=== PATIENT | female | born 1985 | race Caucasian/White ===

== ENCOUNTER 2020-10-25 12:43 | Emergency (ER) | payer MEDICAID ==
[~2020-10-25] VITALS: Ht 165.1 cm; Wt 111.0 kg
--- NOTE | 2020-10-25 13:24 | PHYS DOC ---
Past History Past Medical History: Asthma, Migraines, Other Additional Past Medical Histor: PCOS (JAN BURNS APRN) Past Surgical History: , Other Additional Past Surgical Histo: wisdom teeth (JAN BURNS APRN) Alcohol Use: None (JAN BURNS APRN) General Adult EDM: Chief Complaint: DIZZY/LIGHT HEADED HPI: HPI: Patient is a 35-year-old female who presents with migraine. Patient states that she is a history of migraines. Patient is reporting light sensitivity and nausea. Patient reports that she just moved here and has not established a relationship with a PCP yet. Patient has her first appointment with Dr. Tran in November. Patient denies vomiting. Denies visual changes or weakness. Patient reports that she gets migraines once a week. Patient also has a history of asthma, PCOS. (JAN BURNS APRN) Review of Systems: Review of Systems: Constitutional: Denies fever or chills Eyes: Denies change in visual acuity HENT: Denies nasal congestion or sore throat Respiratory: Denies cough or shortness of breath Cardiovascular: Denies chest pain or edema GI: Denies abdominal pain. Reports nausea. : Denies dysuria Musculoskeletal: Denies back pain or joint pain Integument: Denies rash Neurologic: Reports headache, denies focal weakness or sensory changes Endocrine: Denies polyuria or polydipsia Lymphatic: Denies swollen glands Psychiatric: Denies depression or anxiety (JAN BURNS APRN) Current Medications: Current Meds: Current Medications Medications (Trade) Dose Ordered Sig/Michaela Start Time Stop Time Status Last Admin Dose Admin Diphenhydramine HCl (Benadryl) 25 mg 1X ONCE 10/25/20 13:30 10/25/20 13:31 UNV Ketorolac Tromethamine (Toradol 15mg Vial) 15 mg 1X ONCE 10/25/20 13:30 10/25/20 13:31 UNV Prochlorperazine Edisylate (Compazine) 10 mg 1X ONCE 10/25/20 13:30 10/25/20 13:31 UNV (JAN BURNS APRN) Allergies: Allergies: Allergies Coded Allergies Type Severity Reaction Last Updated Verified No Known Drug Allergies 10/25/20 No (JAN BURNS APRN) Physical Exam: PE: Constitutional: Well developed, well nourished, no acute distress, non-toxic appearance. [] HENT: Normocephalic, atraumatic, bilateral external ears normal, oropharynx moist, no oral exudates, nose normal. [] Eyes: PERRLA, EOMI, conjunctiva normal, no discharge. [] Neck: Normal range of motion, no tenderness, supple, no stridor. [] Cardiovascular:Heart rate regular rhythm, no murmur [] Lungs & Thorax: Bilateral breath sounds clear to auscultation [] Abdomen: Bowel sounds normal, soft, no tenderness, no masses, no pulsatile masses. [] Skin: Warm, dry, no erythema, no rash. [] Back: No tenderness, no CVA tenderness. [] Extremities: No tenderness, no cyanosis, no clubbing, ROM intact, no edema. [] Neurologic: Alert and oriented X 3, normal motor function, normal sensory function, no focal deficits noted. [] Psychologic: Affect normal, judgement normal, mood normal. [] (JAN BURNS APRN) Current Patient Data: Vital Signs: Vital Signs Date Time Temp Pulse Resp B/P (MAP) Pulse Ox O2 Delivery O2 Flow Rate FiO2 10/25/20 13:02 98.5 92 16 150/94 (112) 98 Room Air (JAN BURNS APRN) EKG: EKG: [] (JAN BURNS APRN) Radiology/Procedures: Radiology/Procedures: [] (JAN BURNS APRN) Heart Score: C/O Chest Pain: No Risk Factors: Risk Factors: DM, Current or recent (<one month) smoker, HTN, HLP, family history of CAD, obesity. Risk Scores: Score 0 - 3: 2.5% MACE over next 6 weeks - Discharge Home Score 4 - 6: 20.3% MACE over next 6 weeks - Admit for Clinical Observation Score 7 - 10: 72.7% MACE over next 6 weeks - Early Invasive Strategies (JAN BURNS APRN) Course & Med Decision Making: Course & Med Decision Making Pertinent Labs and Imaging studies reviewed. (See chart for details) [] Patient presents to the emergency room for a migraine headache. Patient sta maxine that she has had migraine for about a week off and on. She reports that she has a history of migraines and gets them weekly. Patient denies thunderclap. Patient denies worst headache of her life. Negative Babinski. Patient does not take medication for chronic migraines. Patient has an appointment in November with Dr. Tran to establish PCP. Patient given Benadryl, Compazine, Toradol. Patient is reporting symptoms have been improved since medication. Sending patient home with Zofran to help with nausea. Patient is hemodynamically stable. Patient is able to ambulate on her own out of the emergency room and accompanied by her . Patient is appreciative and okay with discharge plan. (JAN BURNS APRN) Dragon Disclaimer: Dragon Disclaimer: This electronic medical record was generated, in whole or in part, using a voice recognition dictation system. (JAN BURNS APRN) Attending Co-Sign The patient was seen and interviewed as well as examined at the bedside. The chart was reviewed. The case was discussed. Agree with the plan of care. (MIRZA GUILLEN DO) Departure Departure: Impression: Primary Impression: Migraine Qualified Codes: G43.009 - Migraine without aura, not intractable, without status migrainosus Disposition: 01 HOME / SELF CARE / HOMELESS Condition: STABLE Referrals: TITO TRAN MD (PCP) Patient Instructions: Migraine Headache, [id number] Additional Instructions: You were seen in the emergency room for a migraine headache. You were given Tor adol, Benadryl, Compazine in the emergency room to treat symptoms. I am sending you home with a prescription for Zofran to help with nausea. Please keep your appointment in November with Dr. Tran to establish a PCP. Please return to the emergency room if you have worsening symptoms or concerns. EMERGENCY DEPARTMENT GENERAL DISCHARGE INSTRUCTIONS Thank you for coming to [facility] (ED) today and trusting us with you care. We trust that you had a positivie experience in our Emergency Department. If you wish to speak to the department management, you may call the director at [phone]. YOUR FOLLOW UP INSTRUCTIONS ARE FOLLOWS: 1. Do you have a private Doctor? If you do not have a private doctor, please ask for a resource list of physicians or clinics that may be able to assist you with follow up care. 2. The Emergency Physician has interpreted your x-rays. The X-Ray specialist will also review them. If there is a change in the findings, you will be notified in 48 hours when at all possible. 3. A lab test or culture has been done, your results will be reviewed and you will be notified if you need a change in treatment. ADDITIONAL INSTRUCTIONS AND INFORMATION: 1. Your care today has been supervised by a physician who is specially trained in emergency care. Many problems require more than one evaluation for a complete diagnosis and treatment. We recommend that you schedule your follow up appointment as recommended to ensure complete treatment of you illness or injury. If you are unable to obtain follow up care and continue to have a problem, or if your condition worsens, we recommend that you return to the ED. 2. We are not able to safely determine your condition over the phone nor are we able to give sound medical advice over the phone. For these safety reasons, if you call for medical advice we will ask you to come to the ED for further evaluation. 3. If you have any questions regarding these discharge instructions please call the ED at [phone]. SAFETY INFORMATION: In the interest of safety, wellness, and injury prevention; we encourage you to wear your sealbelt, if you smoke; quite smoking, and we encourage family to use a protective helmet for bicycling and other sporting events that present an increased risk for head injury. IF YOUR SYMPTOMS WORSEN OR NEW SYMPTOMS DEVELOP, OR YOU HAVE CONCERNS ABOUT YOUR CONDITION; OR IF YOUR CONDITION WORSENS WHILE YOU ARE WAITING FOR YOUR FOLLOW UP APPOINTMENT; EITHER CONTACT YOUR PRIMARY CARE DOCTOR, THE PHYSICIAN WHOSE NAME AND NUMBER YOU WERE GIVEN, OR RETURN TO THE ED IMMEDIATELY. Scripts Ondansetron Hcl (ZOFRAN) 4 Mg Tablet 4 MG PO TID PRN PRN for NAUSEA, #9 TAB Prov: JAN BURNS APRN 10/25/20 JAN BURNS APRN October 25, 2020 13:24 MIRZA GUILLEN DO October 28, 2020 08:24
[2020-10-25] MEDS ORDERED: KETOROLAC 15 MG/ML VIAL. IM ONE (13:30)
[2020-10-25] MEDS ORDERED: PROCHLORPERAZINE 10 MG/2 ML VIAL. IM ONE (13:30)
[2020-10-25] MEDS ORDERED: diphenhydrAMINE 50 MG/ML VIAL IM ONE (13:30)
[2020-10-25] MEDS ORDERED: KETOROLAC 15 MG/ML VIAL. ONE (13:32)
[2020-10-25] MEDS ORDERED: PROCHLORPERAZINE 10 MG/2 ML VIAL. IV ONE (13:45)
[2020-10-25] MEDS ORDERED: KETOROLAC 15 MG/ML VIAL. IVP ONE (13:45)
[2020-10-25] MEDS ORDERED: diphenhydrAMINE 50 MG/ML VIAL IVP ONE (13:45)
[2020-10-25] MEDS ORDERED: ONDA4TAB7 PO (14:32)
[2020-10-25 14:45] VITALS: BP 147/94
== END 2020-10-25 14:40 | disposition home or self-care (01) ==
LOC: ER 12:43
DX: G43.009 Migraine without aura, not intractable, without status migrainosus (principal); J45.909 Unspecified asthma, uncomplicated
CPT/HCPCS: 96374; 96375; 99285; J0780; J1200; J1885

== ENCOUNTER 2021-06-01 09:53 | Emergency (ER) | payer MEDICAID ==
[~2021-06-01] VITALS: Ht 165.1 cm; Wt 150.2 kg
[~2021-06-01 09:53] MED LIST: ONDA4TAB7 PO
[2021-06-01] MEDS ORDERED: IV NORMAL SALINE 1,000ML 1,000 ML IV ONE (10:45)
[2021-06-01] MEDS ORDERED: ONDANSETRON PF 4 MG/2 ML VIAL. IVP ONE (10:45)
[2021-06-01] MEDS ORDERED: IOHEXOL 300 MG/ML 75 ML VIAL. IV ONE (10:45)
--- NOTE | 2021-06-01 10:51 | PHYS DOC ---
Past History Past Medical History: Asthma, Migraines, Other Additional Past Medical Histor: PCOS (MARTIN WOODARD [employer]ARD STOCKER) Past Surgical History: , Other Additional Past Surgical Histo: wisdom teeth (MARTIN WOODARD APRN) Alcohol Use: None (MARTIN WOODARD APRN) Adult General Chief Complaint Chief Complaint: FLU SYMPTOM HPI HPI Patient is a 36-year-old female patient with history of asthma, migraine headaches, PCOS, who presents the ED today complaining of nausea, diarrhea, abdominal pain and chills, symptoms began this morning. Patient denies any melena. Rates the abdominal pain as mild and intermittent, mostly on the meddle and right lower quadrant. Denies anything specifically exacerbating or relieving her symptoms. Describes the pain as cramping. (MARTIN WOODARD APRN) Review of Systems Review of Systems Constitutional: Denies fever or chills [] Eyes: Denies change in visual acuity, redness, or eye pain [] HENT: Denies nasal congestion or sore throat [] Respiratory: Denies cough or shortness of breath [] Cardiovascular: No additional information not addressed in HPI [] GI: Reports abdominal pain, nausea, diarrhea : Denies dysuria or hematuria [] Musculoskeletal: Denies back pain or joint pain [] Integument: Denies rash or skin lesions [] Neurologic: Denies headache, focal weakness or sensory changes [] All other systems were reviewed and found to be within normal limits, except as documented in this note. (MARTIN WOODARD [employer]) Current Medications Current Medications Current Medications Medications (Trade) Dose Ordered Sig/Michaela Start Time Stop Time Status Last Admin Dose Admin Iohexol (Omnipaque 300 Mg/ml) 75 ml 1X ONCE 06/01/21 10:45 06/01/21 10:46 DC Ondansetron HCl (Zofran) 4 mg 1X ONCE 06/01/21 10:45 06/01/21 10:46 DC Sodium Chloride 1,000 ml @ 1,000 mls/hr 1X ONCE 06/01/21 10:45 06/01/21 11:44 (MARTIN WOODARD [employer]) Allergies Allergies Allergies Coded Allergies Type Severity Reaction Last Updated Verified No Known Drug Allergies 10/25/20 No (MARTIN WOODARD APRN) Physical Exam Physical Exam Constitutional: Well developed, well nourished, no acute distress, non-toxic appearance. [] HENT: Normocephalic, atraumatic, bilateral external ears normal, oropharynx moist, no oral exudates, nose normal. [] Eyes: PERRLA, EOMI, conjunctiva normal, no discharge. [] Neck: Normal range of motion, no tenderness, supple, no stridor. [] Cardiovascular:Heart rate regular rhythm, no murmur [] Lungs & Thorax: Bilateral breath sounds clear to auscultation [] Abdomen: Bowel sounds normal, soft, point tenderness to the mid abdomen and r ight lower quadrant, negative psoas sign, negative obturator sign, negative Rovsing sign, negative Powers sign, no masses, no pulsatile masses. [] Skin: Warm, dry, no erythema, no rash. [] Back: No tenderness, no CVA tenderness. [] Extremities: No tenderness, no cyanosis, no clubbing, ROM intact, no edema. [] Neurologic: Alert and oriented X 3, normal motor function, normal sensory function, no focal deficits noted. [] Psychologic: Affect normal, judgement normal, mood normal. [] (MARTIN WOODARD [facility]) Current Patient Data Vital Signs Vital Signs Date Time Temp Pulse Resp B/P (MAP) Pulse Ox O2 Delivery O2 Flow Rate FiO2 06/01/21 10:04 98.5 103 16 120/77 (91) 98 Room Air (MARTIN WOODARD [facility]) EKG E[facility] [] [facility] Radiology/Procedures Radiology/Procedures []PROCEDURE: CT ABD PELV W/ IV CONTRST ONLY EXAM: CT Abdomen and Pelvis with IV contrast CLINICAL HISTORY: Reason: n/v/d abd pain, 75mls omni 300 / Spl. Instructions: / History: . COMPARISON: none TECHNIQUE: Helical CT of the abdomen and pelvis was performed following the administration of intravenous contrast. Axial, coronal and sagittal reformatted images were generated. PQRS compliance statement - One or more of the following individualized dose reduction techniques were utilized for this study: 1. Automated exposure control 2. Adjustment of the mA and/or kV according to patient size 3. Use of iterative reconstruction technique FINDINGS: Lower Chest: Visualized lung bases are clear. Abdomen and Pelvis: Liver is normal in size and attenuation. Normal gallbladder is present. No biliary ductal dilation. The adrenal glands and pancreas are unremarkable. Normal renal nephrograms. There is a 4 mm nonobstructing stone in the left inferior pole. No perinephric inflammation or hydronephrosis. Stomach is unremarkable. No evidence of bowel obstruction or pericolonic inflammation. There is mild wall thickening of the descending, sigmoid colon and rectum which may be from underdistention versus mild colitis. The appendix is normal. No free intra-abdominal air or free fluid. No pathologic enlarged abdominal or pelvic lymph nodes. Vasculature is normal in course and caliber. Decompressed bladder. Normal appearing uterus is present. Ovaries are normal in appearance. No significant free pelvic fluid. Anterior abdominal wall is unremarkable. Bones: No acute or suspicious osseous abnormalities. IMPRESSION: 1. No definite acute process in the abdomen or pelvis to correlate with patient's symptoms. 2. Mild circumference wall thickening of the descending, sigmoid colon and rectum may be due to underdistention or mild colitis. Electronically signed by: Vidal King DO (06/01/2021 11:39 AM) [facility] DICTATED AND SIGNED BY: VIDAL KING DO DATE: 06/01/21 1123 CC: MARTIN WOODARD APRN; TITO CARRASCO MD ~MTH0 0 (MARTIN WOODARD APRN) Heart Score C/O Chest Pain: N/A Risk Factors: Risk Factors: DM, Current or recent (<one month) smoker, HTN, HLP, family history of CAD, obesity. Risk Scores: Risk Factors: DM, Current or recent (<one month) smoker, HTN, HLP, family history of CAD, obesity. (MARTIN WOODARD APRN) Course & Med Decision Making Course & Med Decision Making Pertinent Labs and Imaging studies reviewed. (See chart for details) This is a 36-year-old female patient presented to the ED today complaining of abdominal pain, chills, nausea,and diarrhea symptoms began today. CBC, CMP, lipase-no acute findings. CT of the abdomen and pelvic was noted for mild circumference wall thickening of the descending, sigmoid colon and rectum may be due to underdistention or mild colitis. Discharged on Augmentin and Zofran. Instructed to push fluids. Follow-up with PCP in 1 week (MARTIN WOODARD APRN) Dragon Disclaimer Dragon Disclaimer This electronic medical record was generated, in whole or in part, using a voice recognition dictation system. (MARTIN WOODARD APRN) Attending Co-Sign The patient was seen and interviewed as well as examined at the bedside. The chart was reviewed. The case was discussed. Agree with the plan of care. (MIRZA GUILLEN DO) Departure Departure: Impression: Primary Impression: Colitis Disposition: HOME / SELF CARE / HOMELESS Condition: STABLE Referrals: TITO CARRASCO MD (PCP) follow up in one week Patient Instructions: Colitis Additional Instructions: You were evaluated in the emergency room and noted to have mild colitis. We encourage you to push fluids, maintain good and hygiene, take the prescribed antibiotics until completed. Take Zofran as needed for nausea or vomiting. Follow-up with your own doctor or interpreter for the deaf in 1 week if symptoms persist Scripts Amoxicillin/Potassium Clav (AUGMENTIN 875-125 TABLET) 1 Each Tablet 1 TAB PO BID for 7 Days, #14 TAB 0 Refills Prov: MARTIN WOODARD APRN 06/01/21 Ondansetron (ONDANSETRON ODT) 4 Mg Tab.rapdis 1 TAB PO PRN Q6-8HRS, #16 TAB Prov: MARTIN WOODARD APRN 06/01/21 MARTIN WOODARD APRN Jun 01, 2021 10:51 MIRZA GUILLEN DO Jun 01, 2021 17:42
[2021-06-01] MEDS ORDERED: ONDANSETRON ODT 4 MG TAB.RAPDIS ONE (11:21)
[2021-06-01 11:27] LABS: BASO % 0 % (0-3); EOS # 0.2 x10^3/uL (0.0-0.7); EOS % 2 % (0-3); HEMATOCRIT 42.3 % (36.0-47.0); HEMOGLOBIN 13.8 g/dL (12.0-15.5); LYMPH # 2.6 x10^3/uL (1.0-4.8); LYMPH % 24 % (24-48); MEAN CORPUSCULAR HEMOGLOBIN 28 pg (25-35); MEAN CORPUSCULAR HGB CONC 33 g/dL (31-37); MEAN CORPUSCULAR VOLUME 86 fL (79-100); MONO # 0.7 x10^3/uL (0.0-1.1); MONO % 7 % (0-9); NEUT # 7.1 x10^3uL (1.8-7.7); NEUT % 67 % (31-73); PLATELET COUNT 386 x10^3/uL (140-400); RED BLOOD COUNT 4.91 x10^6/uL (3.50-5.40); RED CELL DISTRIBUTION WIDTH 14.3 % (11.5-14.5); WHITE BLOOD COUNT 10.6 x10^3/uL (4.0-11.0)
[2021-06-01] MEDS ORDERED: ONDANSETRON ODT 4 MG TAB.RAPDIS PO ONE (11:30)
[2021-06-01 11:40] LABS: CREATININE 0.9 mg/dL (0.6-1.0); GFR 71.7; POTASSIUM 4.6 mmol/L (3.5-5.1)
--- NOTE | 2021-06-01 11:42 | RAD ---
EXAM: CT Abdomen and Pelvis with IV contrast CLINICAL HISTORY: Reason: n/v/d abd pain, 75mls omni 300 / Spl. Instructions: / History: . COMPARISON: none TECHNIQUE: Helical CT of the abdomen and pelvis was performed following the administration of intrave nous contrast. Axial, coronal and sagittal reformatted images were generated. PQRS compliance statement - One or more of the following individualized dose reduction techniques wer e utilized for this study: 1. Automated exposure control 2. Adjustment of the mA and/or kV according to patient size 3. Use of iterative reconstruction technique FINDINGS: Lower Chest: Visualized lung bases are clear. Abdomen and Pelvis: Liver is normal in size and attenuation. Normal gallbladder is present. No biliary ductal dilation. T he adrenal glands and pancreas are unremarkable. Normal renal nephrograms. There is a 4 mm nonobstruc ting stone in the left inferior pole. No perinephric inflammation or hydronephrosis. Stomach is unremarkable. No evidence of bowel obstruction or pericolonic inflammation. There is mild wall thickening of the descending, sigmoid colon and rectum which may be from underdistention versus mild colitis. The appendix is normal. No free intra-abdominal air or free fluid. No pathologic enlarg ed abdominal or pelvic lymph nodes. Vasculature is normal in course and caliber. Decompressed bladder. Normal appearing uterus is present. Ovaries are normal in appearance. No signif icant free pelvic fluid. Anterior abdominal wall is unremarkable. Bones: No acute or suspicious osseous abnormalities. IMPRESSION: 1. No definite acute process in the abdomen or pelvis to correlate with patient's symptoms. 2. Mild circumference wall thickening of the descending, sigmoid colon and rectum may be due to under distention or mild colitis. Electronically signed by: Chang King DO (06/01/2021 11:39 AM) [facility]
[2021-06-01 11:45] LABS: ALBUMIN 3.7 g/dL (3.4-5.0); ALBUMIN/GLOBULIN RATIO 0.9 (1.0-1.7); TOTAL BILIRUBIN 0.7 mg/dL (0.2-1.0); TOTAL PROTEIN 7.8 g/dL (6.4-8.2)
[2021-06-01 11:46] LABS: AMPHETAMINE/METHAMPHETAMINE NEG (NEG); BARBITURATES NEG (NEG); BENZODIAZEPINES NEG (NEG); CANNABINOIDS NEG (NEG); COCAINE NEG (NEG); METHADONE NEG (NEG); OPIATES NEG (NEG); PHENCYCLIDINE NEG (NEG)
[2021-06-01 12:02] LABS: BACTERIA,URINE 0 /HPF (0-FEW); BILIRUBIN,URINE NEG (NEG); CLARITY,URINE HAZY; COLOR,URINE YELLOW; GLUCOSE,URINE NEG (NEG); NITRITE,URINE NEG (NEG); SQUAMOUS EPITHELIAL CELL,UR MANY /LPF; UROBILINOGEN,URINE 0.2 mg/dL (0.2 mg/dL)
[2021-06-01] MEDS ORDERED: AMOX1TAB61 PO (12:09)
[2021-06-01] MEDS ORDERED: ONDA4TAB12 PO (12:09)
[2021-06-01 12:20] VITALS: BP 121/80
[2021-06-01 13:04] LABS: INFLUENZA A PATIENT NEGATIVE (NEGATIVE); INFLUENZA B PATIENT NEGATIVE (NEGATIVE)
== END 2021-06-01 12:20 | disposition home or self-care (01) ==
LOC: ER 09:53
DX: K52.9 Noninfective gastroenteritis and colitis, unspecified (principal); J45.909 Unspecified asthma, uncomplicated; Z20.822 Contact with and (suspected) exposure to COVID-19
CPT/HCPCS: 74177; 80053; 80307; 81001; 81025; 83690; 85025; 87077; 87086; 87186; 87426; 87804; 96360; 99284; C9803; G0480; J7030; Q0162; Q9967; U0003